=== PATIENT | male | born 1980 ===

== ENCOUNTER 2023-03-05 17:16 | Emergency (ER) | payer BC, SELFPAY ==
--- NOTE | ~2023-03-05 | XR_ITS ---
EXAMINATION: XR knee RT min 4V DATE: 03/05/2023 17:46 INDICATION: Right knee pain TECHNIQUE: Four views of the right knee were obtained. COMPARISON: None. FINDINGS: Alignment is normal. No acute fracture or osteochondral lesion. There is a subtle heterotop ic ossification in the patellar tendon near the tibial insertion there is mild thickening of the holliday llar tendon. There is a tiny joint effusion. Soft tissues are unremarkable. IMPRESSION: 1. Small heterotopic ossification in the patellar tendon near the tibial insertion which could reflec t prior injury. Reviewed, dictated and finalized at location F. [employer] IMPRESSION: 1. Small heterotopic ossification in the patellar tendon near the tibial insert ion which could reflect prior injury.
[2023-03-05 17:21] VITALS: BP 124/89; PULSE 77; RESP 16; TEMP 36.6; O2SAT 99
--- NOTE | 2023-03-05 17:47 | ED.LOWEXIN ---
HPI - Extremity Injury (Lower) General Chief Complaint: Extremity Injury, Lower Stated Complaint: Knee pain Time Seen by Provider: 03/05/23 17:38 Source: patient, RN notes reviewed and old records reviewed Mode of arrival: ambulatory Limitations: no limitations History of Present Illness HPI Narrative: 42 year old male who presents to [facility] care with complaints of right knee pain since the 17 of February from injury when he fell snow tubing and hit his knee on the ice. Patient reports that initially he had swelling to the knee with bruising to the lateral aspect of his right knee. He reports that his knee did seem to get better with icing and rest. Patient reports that he got on the treadmill the other day and he was painting yesterday and today he has had increased discomfort to his knee and also some swelling. Patient reports that pain is to anterior and lateral aspect of his right knee has been icing and has taken some Ibuprofen. MD complaint: knee injury Onset (ago): week(s) (2) Injury: Right: knee Type of Injury: blunt Place: street/outdoors Severity scale (1-10): 3 Exacerbating factors: other (bending) Treatments prior to arrival: cold therapy and NSAIDS Related Data Allergies Allergy/AdvReac Type Severity Reaction Status Date / Time aspirin Allergy Hives Verified 03/05/23 17:24 ibuprofen Allergy Hives Verified 03/05/23 17:24 Review of Systems Review of Systems: CONSTITUTIONAL: Denies fever, chills, or sweats. EYES: Denies visual changes, redness, or discharge. ENT: Denies rhinorrhea, congestion, sore throat, or otalgia. CARDIOVASCULAR: Denies chest pain, palpitations, or edema. RESPIRATORY: Denies cough or dyspnea. GASTROINTESTINAL: Denies abdominal pain, nausea, vomiting, or diarrhea. GENITOURINARY: Denies dysuria or hematuria. SKIN: Denies rash or itching. MUSCULOSKELETAL: Denies back pain,positive for right lateral and anterior knee pain, or myalgia, intermittent swelling ecchymosis resolving. NEUROLOGIC: Denies headache, numbness, or weakness. PSYCHIATRIC: Denies anxiety or depression. All systems reviewed & are unremarkable except as noted in HPI and below PMFSH Social History Social History (Updated 03/07/23 @ 11:14 by Monica Ch NP) Smoking status: Never smoker Alcohol intake: current Alcohol use details: social Substance use type: does not use Living arrangements: with family Gender identity (if verbalized by the patient): Male Comments At time of signature, agree with nursing past medical, surgical, social and family history. There is no relevant family history pertinent to the presenting complaint Exam Narrative: GENERAL: Well-appearing, well-nourished, and in no acute distress. HEAD: Normocephalic, atraumatic. EYES: PERRLA and EOMI. ENT: Nares clear, no rhinorrhea or epistaxis. Mucous membranes moist. NECK: Supple. no lymphadenopathy CHEST: Clear to auscultation. No respiratory distress.SAO2 99% on room air HEART: Regular rate and rhythm. No murmur heard. Normal peripheral pulses. ABDOMEN: Soft, nontender, nondistended, normal active bowel sounds. EXTREMITIES: Normal range of motion. No edema.Exception noted to right knee with pain to anterior knee and lateral knee especially with bending, initial injury 2 weeks ago when he hit knee on ice when snow tubing in [place] with his family. initial bruising is resolving to lateral right knee increased pain with bending some swelling noted to knee, circulation and sensation is intact. SKIN: Warm, dry, no rash. NEURO: No focal deficits. Alert and oriented x3. Course Course Emergency Course: Patient is aware of diagnosis, understands and agrees to treatment plan.? Anticipatory guidance given.? Patient agrees to follow-up as directed and is aware of reasons to seek care at the emergency department. Portions of this record may have been created with voice recognition software Level of Care: Express Care Visit Vital Signs Vital si
== END 2023-03-05 18:14 | disposition home or self-care (01) ==
PROVIDERS: Emergency Provider Registered Nurse; PCP Family Medicine
DX: M25.561 Pain in right knee (principal)
CPT/HCPCS: 73564; 99203; G0463

== ENCOUNTER 2023-11-27 13:55 | Outpatient (CLI) | payer BC, SELFPAY ==
--- NOTE | ~2023-11-27 | XR_ITS ---
EXAMINATION: XR chest 2V 11/27/2023 14:05 INDICATION: Cough for 4 days PROCEDURE: 2 view chest COMPARISON: No prior studies for comparison. FINDINGS: The lungs are clear. There is pectus excavatum. The cardiomediastinal silhouette is within normal limits. There are no pleural effusions. There is no pneumothorax suspected. IMPRESSION: 1: NO ACUTE CARDIOPULMONARY DISEASE. Reviewed, dictated and finalized at location B.
== END 2023-11-27 13:56 | disposition home or self-care (01) ==
PROVIDERS: PCP Nurse Practitioner Family; Visit Provider Nurse Practitioner Family
DX: R05.9 Cough, unspecified (principal)
CPT/HCPCS: 71046